=== PATIENT | male | born 1970 | race Caucasian/White ===

== ENCOUNTER 2021-03-01 17:46 | Emergency (ER) | payer MEDICAID ==
[~2021-03-01] VITALS: Ht 177.8 cm; Wt 101.0 kg
[~2021-03-01 17:46] MED LIST: CLIN-97 PO; CLIN150C2 PO; CLON-527 PO; HYDR2TAB28 PO; LEVO500T2 PO; METH-603 PO
[2021-03-01 18:04] VITALS: BP 129/83
[2021-03-01 18:55] LABS: BASOPHILS # (AUTO) 0.1 X10'3 (0-0.2); BASOPHILS % (AUTO) 1.1 % (0-1); EOSINOPHILS # (AUTO) 0.1 X10'3 (0-0.9); EOSINOPHILS % (AUTO) 1.8 % (0-6); HEMATOCRIT 45.7 % (42.0-52.0); HEMOGLOBIN 15.1 g/dl (14.0-17.9); LYMPHOCYTES # (AUTO) 1.4 X10'3 (1.1-4.8); LYMPHOCYTES % (AUTO) 25.3 % (21-51); MEAN CORPUSCULAR HEMOGLOBIN 28.9 PG (27.0-31.0); MEAN CORPUSCULAR HGB CONC 33.1 g/dL (33.0-36.5); MEAN CORPUSCULAR VOLUME 87.6 FL (78-98); MEAN PLATELET VOLUME 8.2 FL (7.4-10.4); MONOCYTES # (AUTO) 0.5 X10'3 (0-0.9); MONOCYTES % (AUTO) 9.7 % (2-12); NEUTROPHILS # (AUTO) 3.4 X10'3 (1.8-7.7); NEUTROPHILS % (AUTO) 62.1 % (42-75); PLATELET COUNT 225 X10'3 (140-440); RED BLOOD COUNT 5.22 X10'6 (4.70-6.10); RED CELL DISTRIBUTION WIDTH 14.5 % (11.5-14.5); WHITE BLOOD COUNT 5.6 X10'3 (4.5-11.0)
[2021-03-01 19:07] LABS: ALANINE AMINOTRANSFERASE 45 U/L (12-78); ALBUMIN 4.1 G/DL (3.4-5.0); ALBUMIN/GLOBULIN RATIO 1.1 (1.1-1.5); ALKALINE PHOSPHATASE 90 IU/L (46-116); ANION GAP 14 (8-16); ASPARTATE AMINO TRANSFERASE 32 U/L (10-37); BILIRUBIN,TOTAL 0.4 MG/DL (0.1-1.0); BLOOD UREA NITROGEN 21 MG/DL (7-18); BUN/CREATININE RATIO 16.4 (5.4-32.0); CHLORIDE 105 MMOL/L (99-107); CREATININE 1.28 MG/DL (0.60-1.10); GLUCOSE 99 MG/DL (70-104); POTASSIUM 3.7 MMOL/L (3.5-5.1); SODIUM 143 MMOL/L (135-145); TOTAL CARBON DIOXIDE 24.4 MMOL/L (24-32); TOTAL PROTEIN 7.8 G/DL (6.4-8.2); eGFR 60 ML/MIN
== END 2021-03-01 21:23 | disposition left against medical advice (07) ==
LOC: ER 17:46
DX: M79.89 Other specified soft tissue disorders (principal); Z53.21 Procedure and treatment not carried out due to patient leaving prior to being seen by health care provider
CPT/HCPCS: 36415; 80053; 85025

== ENCOUNTER 2021-07-18 05:43 | Emergency (ER) | payer MEDICAID ==
[~2021-07-18] VITALS: Ht 177.8 cm; Wt 97.7 kg
[2021-07-18 06:36] LABS: BASOPHILS % (AUTO) 0.6 % (0-1); EOSINOPHILS # (AUTO) 0.1 X10'3 (0-0.9); EOSINOPHILS % (AUTO) 1.2 % (0-6); HEMATOCRIT 42.2 % (42.0-52.0); HEMOGLOBIN 14.6 g/dl (14.0-17.9); LYMPHOCYTES # (AUTO) 1.2 X10'3 (1.1-4.8); LYMPHOCYTES % (AUTO) 24.7 % (21-51); MEAN CORPUSCULAR HEMOGLOBIN 29.8 PG (27.0-31.0); MEAN CORPUSCULAR HGB CONC 34.6 g/dL (33.0-36.5); MEAN CORPUSCULAR VOLUME 86.2 FL (78-98); MEAN PLATELET VOLUME 8.6 FL (7.4-10.4); MONOCYTES # (AUTO) 0.6 X10'3 (0-0.9); MONOCYTES % (AUTO) 11.4 % (2-12); NEUTROPHILS # (AUTO) 3.1 X10'3 (1.8-7.7); NEUTROPHILS % (AUTO) 62.1 % (42-75); PLATELET COUNT 196 X10'3 (140-440); RED CELL DISTRIBUTION WIDTH 13.2 % (11.5-14.5)
[2021-07-18 06:42] LABS: ALANINE AMINOTRANSFERASE 31 U/L (12-78); ALBUMIN 3.5 G/DL (3.4-5.0); ALBUMIN/GLOBULIN RATIO 1.1 (1.1-1.5); ALKALINE PHOSPHATASE 70 IU/L (46-116); ANION GAP 6 (8-16); ASPARTATE AMINO TRANSFERASE 19 U/L (10-37); BILIRUBIN,TOTAL 0.6 MG/DL (0.1-1.0); BLOOD UREA NITROGEN 16 MG/DL (7-18); BUN/CREATININE RATIO 17.2 (5.4-32.0); CALCIUM 7.8 MG/DL (8.5-10.1); CHLORIDE 107 MMOL/L (99-107); CREATININE 0.93 MG/DL (0.60-1.10); GLUCOSE 112 MG/DL (70-104); POTASSIUM 3.4 MMOL/L (3.5-5.1); SODIUM 141 MMOL/L (135-145); TOTAL CARBON DIOXIDE 28.2 MMOL/L (24-32); TOTAL PROTEIN 6.7 G/DL (6.4-8.2); eGFR 86 ML/MIN
[2021-07-18 06:50] LABS: ETHANOL 0.035 GM/DL (0.0-0.010)
[2021-07-18] MEDS ORDERED: ondansetron/PF 4mg/2ml inj IV ONE (07:05)
[2021-07-18] MEDS ORDERED: ketorolac trometh. 30mg/ml inj. IV ONE (07:05)
[2021-07-18] MEDS ORDERED: dexamethasone 4mg tablet PO ONE (07:05)
[2021-07-18] MEDS ORDERED: DEXAMETHASONE 6 MG TABLET PO ONE (07:10)
[2021-07-18] MEDS ORDERED: iohexol 350MG/ML 100ml bottle IV ONE (07:29)
[2021-07-18] MEDS ORDERED: DEXA6TAB6 PO (09:31)
[2021-07-18 09:48] VITALS: BP 118/75
== END 2021-07-18 09:50 | disposition home or self-care (01) ==
LOC: ER 05:43
DX: U07.1 COVID-19 (principal); G89.29 Other chronic pain; M54.9 Dorsalgia, unspecified; Z79.899 Other long term (current) drug therapy
CPT/HCPCS: 36415; 71045; 71275; 80053; 80320; 83880; 84484; 85025; 87635; 93005; 96374; 96375; 99285; C9803; J1885; J2405; Q9967; J8540

== ENCOUNTER 2023-02-03 01:32 | Emergency (ER) | payer MEDICAID ==
[~2023-02-03] VITALS: Ht 177.8 cm; Wt 95.5 kg
[~2023-02-03 01:32] MED LIST changes: +DEXA6TAB6 PO
[2023-02-03 01:33] VITALS: BP 151/91; PULSE 88; RESP 16; TEMP 97.8; O2SAT 96
== END 2023-02-03 02:59 | disposition left against medical advice (07) ==
LOC: ER 01:33
DX: R04.0 Epistaxis (principal); Z53.21 Procedure and treatment not carried out due to patient leaving prior to being seen by health care provider
CPT/HCPCS: 99281